=== PATIENT | female | born 1995 | race Caucasian/White ===

== ENCOUNTER → 2019-03-16 08:06 | Outpatient (CLI) | payer BC, MEDICAID, SELFPAY ==
[2017-10-09 11:21] VITALS: BMI 16.8
[2019-03-16] VITALS (9 sets, daily range): BP systolic 101–128; BP diastolic 58–89; PULSE 53–73; RESP 13–21; TEMP 36.5; O2SAT 96–100; BMI 26.9
--- NOTE | 2019-03-16 08:21 | CT_ITS ---
PROCEDURE: CT GUIDED PERCUTANEOUS KIDNEY BIOPSY. DATE: March 16, 2019. INDICATION: Female, 23 years old. History of a transplanted right kidney and decreased renal function. PHYSICIAN: Marty Haji M.D. MEDICATIONS: 2 mg of Versed and 50 mcg of fentanyl intravenously. Conscious sedation protocol was followed. The patient was monitored by the department nurse. Conscious sedation was started at 9:42 AM and terminated at 9:57 AM. ACCESS SITE: Right pelvic kidney. NEEDLE: 18-gauge core biopsy needle system. SPECIMEN: 4 18-gauge cores. EBL: None. COMPLICATIONS: None immediate. RADIATION DOSAGE (If Supplied By Facility): CTDIvol = ( 15 ) mGy, DLP = ( 466.41. ) mGycm The risks, benefits, and alternatives to the procedure and sedation were explained to the patient. The specific risk of hemorrhage requiring further treatment or intervention was detailed and accepted. Written informed consent was obtained. The patient was placed on the CT table in the supine position. Multiple axial images were obtained from the lung base through the caudal extent of the kidneys. An appropriate entry site was identified and a donnie made on the skin. The skin overlying the [ right] anterior flank was prepped and draped in sterile fashion. 1% lidocaine was administered subcutaneously for local anesthesia. Initially, a 22 gauge needle was advanced and CT images confirmed good needle position. The 22 gauge needle was then exchanged for an 17 gauge introducer needle which was advanced. Repeat CT images confirmed good needle trajectory and tip position. The introducer needle was then advanced into the periphery of the inferior renal pole, and CT images were again obtained to confirm exact tip location. The inner stylet of the introducer needle was then removed and an 18 gauge coaxial needle was advanced thru the introducer needle and biopsy performed. A total of [ 4] passes were performed and the specimen collected was sent to Pathology for further evaluation. The needle was withdrawn. Hemostasis was achieved with manual compression and a sterile dressing was applied. Repeat CT images of the biopsy area was performed which demonstrated no gross bleeding or hematoma. The patient tolerated the procedure well without immediate complications. The patient was transported to the [floor/recovery area] in stable condition. CT/Biopsy/Inj or Needle Placement IMPRESSION: Successful CT guided percutaneous kidney biopsy. Electronically Signed: Marty Haji, at 10:58 EDT , Service support ,
[2019-03-16 08:27] LABS: Hematocrit 34.2 % (37-47); Hemoglobin 11.4 g/dl (12.0-15.0); Mean Corp Hgb Conc 33.3 g/gl (32-36); Mean Corpuscular Hgb 34.2 pg (27.0-32.0); Mean Corpuscular Volume 102.7 fL (81-99); Mean Platelet Vol. 8.9 fl (6.2-12.0); Platelet Count 209 K/mm3 (150-450); RBC Distribution Width CV 14.1 % (11.6-14.6); Red Blood Count 3.33 M/mm3 (4.2-5.4); White Blood Count 6.2 K/mm3 (4.4-11.0)
[2019-03-16 08:29] LABS: Scan Indicated on CBC? Y/N NO
[2019-03-16 08:34] LABS: International Normalized Ratio 1.1; Prothrombin Time (Protime)PT. 14.1 SECONDS (11.7-14.9)
[2019-03-16 08:35] LABS: Partial Thromboplast Time 27.6 Seconds (24.1-36.2)
[2019-03-16] MEDS: Midazolam 2 MG/2 ML Syringe IV (09:42)
[2019-03-16] MEDS: fentaNYL 100 MCG/2 ML Ampul IV (09:43)
--- NOTE | 2019-03-16 09:45 | KI_PTH ---
PATIENT: ALANNA LYMAN LOC: CT U#:[id number] AGE/SX: 29/F ROOM: RE03/16/[address]: Dr. Ezekiel Becerril MD : 1995 BED: DIS: SPEC #: [id number] RECD: 03/16/19 10:12 STATUS: NELSON REAyaan #: [id number] CASA: 03/16/19 09:[address]: Ezekiel Becerril DEPT: SURGICAL PATHOLOGY RECD BY: Katherine Sauceda ENTERED: 03/16/19 10:37 SP TYPE: KIDNEY BX OTHR DR: Dr. Jonny Azul MD Tissues: Kidney, NOS Procedures: Electron Microscopy (ACH) Fluorescent Antibody (ACH) Kidney Biopsy (ACH) Fluorescent antibody (ACH) add'l Special Stain Group II HEADER OPERATION: Transplanted kidney biopsy PRE-OP DIAGNOSIS: Chronic kidney disease, renal transplant disorder TISSUE SUBMITTED: 18 gauge core x4 transplanted kidney - right pelvis MICROSCOPIC DIAGNOSIS Transplant kidney, right pelvis biopsies: Borderline cellular renal transplant changes including interstitial inflammation (i2) and rare tubulitis (t1). Mild interstitial fibrosis. Chronic transplant nephropathy including thickened vasculature and mild mesangial expansion. No evidence of antibody mediated rejection (C4d immunohistochemistry negative). See comment. COMMENT Correlate clinically with creatinine levels, donor-specific antibodies and renal function. Slides reviewed with Dr. Ferguson. The findings are best compatible with borderline cellular changes and a background of chronic changes. No evidence of antibody-mediated rejection (C4d immunohistochemical stain negative). MICROSCOPIC DESCRIPTION Light microscopy examined with H & E, PAS, Villalba silver and trichrome stains yields 17 glomeruli for evaluation. There are 8 globally sclerosed glomeruli; however, 7 of these are subcapsular and likely do not represent a disease process. The remaining open glomeruli show mild mesangial expansion and rare evidence of hypercellularity. There is no evidence of glomerular inflammation, crescent formation or segmental sclerosis. The interstitium shows variable mild to moderate lymphocytic infiltrate (i2) with occasional/focal plasma cells are rare eosinophils. There is mild evidence of interstitial fibrosis on deeper sections. There is patchy tubule atrophy in areas of interstitial inflammation. The tubules show focal evidence of lymphocytic infiltrate (t1). Exam of the vessels show thickened intimal layer with some asymmetry. There is no evidence of vasculitis. Special stain positive controls are reviewed and deemed adequate. Deeper levels examined with H & E stain. Medullary renal tissue is fairly unremarkable. C4d immunohistochemical stain is negative in the peritubule capillaries. There is rare stain in the glomeruli and in a single medium sized arteriole seen in the sample. Positive and negative immunohistochemical stain controls are reviewed and deemed adequate. There is focal capsular fibrous tissue present with a mild lymphoid aggregate underneath the capsule. IMMUNOFLUORESCENCE: Tissue frozen and submitted for immunofluorescence evaluation yields 5 glomeruli, of which 2 are globally sclerosed. There is background glomerular and cortex signal with IgG, albumin, kappa and lambda. IgM shows only focal nonspecific peripheral glomerular signal. IgA, C3, C1q and fibrin are negative. Positive and negative immunofluorescence controls are reviewed and deemed adequate. ELECTRON MICROSCOPY: Toluidine blue semithin sections yields 1 open glomerulus. Ultrastructure examination shows focal dilated capillary loops with minimal variable glomerular basement membrane thickening. There is mild patchy mesangial matrix expansion. There is no evidence of deposits or significant endothelial damage. The podocyte foot processes are essentially intact. The tubules show mild degenerative changes. GROSS DESCRIPTION The specimen is sent entirely to [facility] for diagnosis. Received in tube of poly-transport media are four stuart cores of renal tissue ranging in length from 0.7 cm up to 1.6 cm; each approximately 0.1 cm in width. The specimen is divided for electron microscopy, immunofluorescence and light microscopy.
== END ==
PROVIDERS: Family Provider Family Medicine; PCP Family Medicine; Referring Provider Internal Medicine Nephrology; Visit Provider Internal Medicine Nephrology
DX: N18.3 Chronic kidney disease, stage 3 (moderate) (principal); T86.10 Unspecified complication of kidney transplant; D89.9 Disorder involving the immune mechanism, unspecified; Z13.0 Encounter for screening for diseases of the blood and blood-forming organs and certain disorders involving the immune mechanism; N17.9 Acute kidney failure, unspecified
CPT/HCPCS: 50200; 36415; 77012; 85027; 85610; 85730; 88305; 88313; 88346; 88348; 88350; 99156; J7040

== ENCOUNTER → 2019-05-01 08:14 | Outpatient (CLI) | payer BC, MEDICAID, SELFPAY ==
[2019-03-16 08:52] VITALS: BMI 26.9
[2019-05-01] VITALS (9 sets, daily range): BP systolic 121–152; BP diastolic 71–96; PULSE 59–76; RESP 16–23; TEMP 36.7; O2SAT 96–100; BMI 27.3
--- NOTE | 2019-05-01 08:45 | CT_ITS ---
PROCEDURE: CT GUIDED PERCUTANEOUS KIDNEY BIOPSY. DATE: May 01, 2019. INDICATION: Female, 23 years old. Patient has a history of a right renal transplant and possible rejection. PHYSICIAN: Marty Haji M.D. MEDICATIONS: 2 mg of Versed and 50 mcg of fentanyl intravenously. Conscious sedation protocol was followed. Conscious sedation was started at 10:03 AM and terminated at 10:26 AM. The patient was independently monitored by the department nurse. ACCESS SITE: Lower pole of the transplanted right pelvic kidney. NEEDLE: 18-gauge core biopsy needle system SPECIMEN: 4 18-gauge cores EBL: None. COMPLICATIONS: None immediate. RADIATION DOSAGE (If Supplied By Facility): CTDIvol = ( 16.67 ) mGy, DLP = ( 398.64 ) mGycm The risks, benefits, and alternatives to the procedure and sedation were explained to the patient. The specific risk of hemorrhage requiring further treatment or intervention was detailed and accepted. Written informed consent was obtained. The patient was placed on the CT table in the supine position. Multiple axial images were obtained from the lung base through the caudal extent of the kidneys. An appropriate entry site was identified and a donnie made on the skin. The skin overlying the [right ]anterior flank was prepped and draped in sterile fashion. 1% lidocaine was administered subcutaneously for local anesthesia. A 17 gauge introducer needle which was advanced. Repeat CT images confirmed good needle trajectory and tip position. The introducer needle was then advanced into the periphery of the inferior renal pole, and CT images were again obtained to confirm exact tip location. The inner stylet of the introducer needle was then removed and an 18 gauge coaxial needle was advanced thru the introducer needle and biopsy performed. A total of [ 4] passes were performed and the specimen collected was sent to Pathology for further evaluation. The needle was withdrawn. Hemostasis was achieved with manual compression and a sterile dressing was applied. Repeat CT images of the biopsy area was performed which demonstrated no gross bleeding or hematoma. The patient tolerated the procedure well without immediate complications. The patient was transported to the [floor/recovery area] in stable condition. CT/Biopsy/Inj or Needle Placement IMPRESSION: Successful CT guided percutaneous kidney biopsy. Electronically Signed: Marty Haji, at 10:59 EDT , Service support ,
[2019-05-01 08:46] LABS: Hematocrit 33.5 % (37-47); Hemoglobin 11.4 g/dl (12.0-15.0); Mean Corpuscular Hgb 35.1 pg (27.0-32.0); Mean Corpuscular Volume 103.1 fL (81-99); Mean Platelet Vol. 8.7 fl (6.2-12.0); Platelet Count 221 K/mm3 (150-450); RBC Distribution Width CV 14.4 % (11.6-14.6); RBC Distribution Width SD 52.3 fl (35.1-43.9); Red Blood Count 3.25 M/mm3 (4.2-5.4); White Blood Count 9.9 K/mm3 (4.4-11.0)
[2019-05-01 08:49] LABS: Scan Indicated on CBC? Y/N NO
[2019-05-01 08:54] LABS: Prothrombin Time (Protime)PT. 13.2 SECONDS (11.7-14.9)
[2019-05-01 08:55] LABS: Partial Thromboplast Time 23.5 Seconds (24.1-36.2)
[2019-05-01] MEDS: Midazolam 2 MG/2 ML Syringe IV (10:07)
[2019-05-01] MEDS: fentaNYL 100 MCG/2 ML Ampul IV (10:09)
--- NOTE | 2019-05-01 10:30 | KI_PTH ---
PATIENT: ALANNA LYMAN LOC: CT U#:[id number] AGE/SX: 29/F ROOM: RE05/01/[address]: Dr. Ezekiel Becerril MD : 1995 BED: DIS: SPEC #: [id number] RECD: 05/01/19 10:34 STATUS: NELSON REAyaan #: [id number] CASA: 05/01/19 10:[address]: Ezekiel Becerril DEPT: SURGICAL PATHOLOGY RECD BY: Katherine Sauceda ENTERED: 05/01/19 15:35 SP TYPE: KIDNEY BX OTHR DR: Dr. Jonny Azul MD Tissues: Kidney, NOS Procedures: Electron Microscopy (ACH) Fluorescent Antibody (ACH) Sp St Grp II Kidney (ACH) Kidney Biopsy (ACH) Fluorescent antibody (ACH) add'l Immunohistochemical Stains HEADER OPERATION: CT-guided transplant kidney biopsy PRE-OP DIAGNOSIS: Renal transplant disorder TISSUE SUBMITTED: Kidney biopsy 18 gauge x4 MICROSCOPIC DIAGNOSIS Renal transplant biopsy demonstrating: Extensive acute tubular injury. Borderline changes of cellular rejection. No evidence of antibody-mediated resection, anti-C4d negative. MICROSCOPIC DESCRIPTION Sections are evaluated with H & E, PAS, Villalba and trichrome stains. 27 total glomeruli are present. 19 glomeruli are globally sclerotic; however, they are predominantly subcapsular in location. Preserved glomeruli demonstrate delicate capillary loops with no significant mesangial expansion, segmental lesions or active glomerulitis. There is minimal (~5%) interstitial fibrosis with an expected increase in the subcapsular region. The vast majority of the proximal tubules demonstrate necrosis and sloughing of the epithelial cells. There is a mild patchy mononuclear inflammatory infiltrate and rare foci of lymphocytic tubulitis are identified. Arterioles show no significant medial thickening. No arteritis is identified. IMMUNOFLUORESCENCE: There is no specific glomerular staining to indicate the deposition of immunoglobulins (IgG, IgA or IgM) or complement components (C3 or C1q). Glomerular fibrin deposition is not increased. IMMUNOHISTOCHEMISTRY: An immunohistochemical stain for anti-C4d is performed with adequate controls and demonstrates no staining of peritubular capillaries. ELECTRON MICROSCOPY: One glomerulus is evaluated. Mesangial areas are not significantly expanded and no discrete electron dense deposits are identified. Glomerular capillary loops demonstrate basement membranes of normal thickness with no discrete electron dense deposits. There is approximately 15-20% effacement of overlying epithelial cell foot processes. Tubular basement membranes are of normal thickness with no discrete electron dense deposits. There is significant necrosis of tubular epithelial cells. GROSS DESCRIPTION The specimen is sent entirely to [facility] for diagnosis. The specimen is received in transport medium and consists of four cores of stuart renal tissue that range in length from 1 to 1.5 cm. The cores are divided for histology, immunofluorescence and electron microscopy.
== END ==
PROVIDERS: Family Provider Family Medicine; PCP Family Medicine; Referring Provider Internal Medicine Nephrology; Visit Provider Internal Medicine Nephrology
DX: Z01.818 Encounter for other preprocedural examination (principal); T86.10 Unspecified complication of kidney transplant
CPT/HCPCS: 50200; 36415; 77012; 85027; 85610; 85730; 88305; 88313; 88342; 88346; 88348; 88350; 99156; J7040; A4216

== ENCOUNTER 2019-06-23 11:52 | Inpatient (IN) | payer BC, MEDICAID, SELFPAY ==
[2019-05-01 09:55] VITALS: BMI 27.3
[2019-06-23 11:53] VITALS: BP 121/78; PULSE 83; RESP 15; TEMP 36.6; O2SAT 100; BMI 25.4
--- NOTE | 2019-06-23 12:35 | ED.VISSUMM ---
- ER Visit Summary Date of Service: 06/23/19 Chief Complaint: I need to be transferred to History of Present Illness: The patient is a 23 F who comes in complaining she needs to be transferred to [place]. She states that she has a kidney transplant and her pension examiner said that it is failing. He checked her creatinine recently and it was 5.2. She continues with her immunosuppressive medications at home. Denies any fevers. Her only complaint is of mild stomach pains. Physical Examination: Vital signs reviewed. HEENT exam unremarkable. Heart is regular rate and rhythm without murmurs. Lungs are clear to auscultation. Abdomen is soft and nontender. Extremities reveal no edema. Skin exam normal. Neurologic exam normal. Test Results: Hemoglobin 9.5, BUN 79, creatinine 7.6 Emergency Department Course and Treatment: The patient's pension examiner, Dr. Becerril has been in contact with the transplant team at . They have done 2 biopsies the last time her creatinine raise like this. There is no evidence of rejection. The transplant team does not feel the patient needs to be transferred to . Her pension examiner would like her kept here for fluid hydration and to trend her creatinine. I spoke with the hospitalist and the patient will be admitted Treatment Plan: [] Disposition: Admit Impression: Acute renal failure, kidney transplant This note was generated with [employer] dictation software. It may contain incorrect words, spelling, and punctuation that were not noted in review of the chart prior to signing ED Disposition - Plan for ED Patient: Referrals: Jonny Azul [Primary Care Provider] -
[2019-06-23 12:58] LABS: Absolute Lymphocyte Count 2.35 X10^3/uL (0.83-4.51); Absolute Neutrophil Count 3.8 X10^3/uL (2.0-7.7); Basophil# 0.04 X10^3/uL; Basophil% 0.6 % (0-1); Eosinophil# 0.07 X10^3/uL; Hematocrit 27.7 % (37-47); Hemoglobin 9.5 g/dL (12.0-15.0); Lymphocyte # 2.35 X10^3/ul (4.0); Lymphocyte % 34.7 % (19-41); Mean Corp Hgb Conc 34.3 g/dL (32-36); Mean Corpuscular Hgb 34.2 pg (27.0-32.0); Mean Corpuscular Volume 99.6 fL (81-99); Mean Platelet Vol. 10.1 fl (6.2-12.0); Monocyte# 0.54 X10^3/uL; NRBC Flagged by Analyzer 0 % (0-5); Neutrophil # 3.76 X10^3/uL (2.7-7.7); Neutrophil % 55.4 % (47-70); Platelet Count 205 K/mm3 (150-450); Red Blood Count 2.78 M/mm3 (4.2-5.4); White Blood Count 6.8 K/mm3 (4.4-11.0)
[2019-06-23 13:13] LABS: Anion Gap 11 (5-15); BUN 79 mg/dL (7-18); BUN/Creat Ratio 10.4 RATIO (10-20); Calcium,Total 9.9 mg/dL (8.5-10.1); Chloride 108 mmol/L (98-107); EST Glomerular Filtration Rate 7 mL/min (>60); Est Glom Filt Rate - Afr Amer 9 mL/min (>60); Estimated Creatinine Clearance 8.84 ml/min; Glucose 91 mg/dL (74-106); Potassium 3.8 mmol/L (3.5-5.1); Sodium Level 137 mmol/L (136-145)
--- NOTE | 2019-06-23 15:11 | PCM.CONS.R ---
Problem List (1) NASIM (acute kidney injury) Status: Acute Consultation - Renal 06/23/19 PCP/ Referring MD: Requesting physician: Dr Owens Primary care physician: Jonny Azul Reason for Consultation:: NASIM - History of Present Illness History of Present Illness: The patient is a 23 year old F who was sent to the hospital by me due to acute renal failure. She is well-known to us from office. Has known history of living related kidney transplant in 2004 from her mother. 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 She has maintained relatively stable kidney function over the last few years. About 6 months ago, she started having increase in creatinine. Initial biopsy was consistent with acute cellular rejection. We referred her to [facility] kidney [facility] center. She was treated with IV steroids followed by high-dose oral steroids. She was somewhat erratic in following up. Missed several appointments due to transportation issues. Due to persistent creatinine elevation, she had another biopsy which showed somewhat better kidney. However she had pretty extensive sclerosis. She came into my office today and was found to have a creatinine of 7 hence she was referred to here. Says she has been sick over the last few days. Associated nausea, poor appetite. She recently had a progesterone implant for contraception. She is in the process of getting it removed. No urinary complaints. Medication list as below. Last tacrolimus level is on the higher side at 12.6. No cough, fever, UTI symptoms. - Allergies Allergies: Allergies iron Allergy (Verified 06/23/19 15:03) Low blood pressure/rash amoxicillin [From Augmentin] Adverse Reaction (Verified 06/23/19 15:03) vomiting/heart racing clavulanic acid [From Augmentin] Adverse Reaction (Verified 06/23/19 15:03) vomiting/heart racing STARFRUIT Adverse Reaction (Uncoded 05/01/19 09:55) KIDNEY TRANSPLANT - Current Medications Current Medications: Current Medications Sodium Chloride () 1,000 mls @ 150 mls/hr IV .Q6H40M CHRISTAL - Social History Smoking Status: Never smoker Review of Systems Constitutional: Reports: Anorexia, Fever. Denies: Chills, Weight Change HEENT: Denies: Head Aches, Sinus Congestion, Sinus Drainage Cardiovascular: Denies: Chest Pain, Palpitations Respiratory: Denies: Cough, Shortness of breath at rest, Sputum production Gastrointestinal: Denies: Abdominal Pain, Nausea, Vomiting Genitourinary: Denies: Dysuria Musculoskeletal: Denies: Joint Pain, Joint Tenderness Skin: Denies: Rash, Wounds Neurological: Denies: Numbness, Tingling, Focal weakness Psychiatric: Denies: Anxiety, Depression, Homicidal Ideations, Suicidal Ideations Hematologic/ Lymphatic: Denies: Easy Bruising, Easy Bleeding Patient Problems: Active and Suspected Problems NASIM (acute kidney injury) (Acute) - Physical Exam General: Alert, Oriented x3, Cooperative HEENT: Atraumatic, PERRLA, EOMI, Normocephalic Neck: Supple, No JVD, Negative Carotid Bruits Lungs: Clear to auscultation, Normal air movement Cardiovascular: Regular rate, No murmurs Abdomen: Bowel Sounds Present, Soft, Non Tender Extremities: No edema, Capillary Refill Less than 3 Seconds Skin: No rashes, No breakdown Musculoskeletal: No Tenderness to Palpation of Joints or Extremities Neurological: Cranial nerves II-XII grossly intact Psych/Mental Status: Normal Affect, Appropriate Vital Signs Temp Pulse Resp BP Pulse Ox 97.8 F 83 15 121/78 H 100 06/23/19 11:53 06/23/19 11:53 06/23/19 11:53 06/23/19 11:53 06/23/19 11:53 Oxygen Delivery Method Room Air Weight: 61.235 kg Body Mass Index (BMI) 25.4 Laboratory Tests Past 24 Hrs 06/23/19 06/23/19 12:45 12:45 WBC 6.8 RBC 2.78 L Hgb 9.5 L Hct 27.7 L MCV 99.6 H MCH 34.2 H MCHC 34.3 RDW Std Deviation 44.0 H RDW Coeff of Chava 12.0 Plt Count 205 MPV 10.1 Immature Gran % (Auto) 0.300 Neut % (Auto) 55.4 Lymph % (Auto) 34.7 Foster % (Auto) 8.0 Eos % (Auto) 1.0 Baso % (Auto) 0.6 Absolute Neuts (auto) 3.8 Absolute Lymphs (auto) 2.35 Absolute Nucleated RBC 0.00 Nucleated RBC % 0 Sodium 137 Potassium 3.8 Chloride 108 H Carbon Dioxide 18.0 L Anion Gap 11 BUN 79 H Creatinine 7.60 H* Estim Creat Clear Calc 8.84 Est GFR (MDRD) Af Amer 9 L Est GFR (MDRD) Non-Af 7 L BUN/Creatinine Ratio 10.4 Glucose 91 Calcium 9.9 Assessment/Plan All Active Problems NASIM (acute kidney injury) (Acute) Acute renal failure Kidney transplant with recent cellular rejection Acidosis She has been under the care of [facility] transplant [place] over the last 3 months. She had 2 kidney biopsies with last one being end of April. The second biopsy showed extensive sclerosis. There was no cellular rejection. She has almost 70% fibrosis. I discussed this case with transplant nephrology at the [facility]. They do not think antirejection treatment is warranted due to extensive fibrosis. Even last month, her creatinine was in the threes. Since she is having significant nausea and vomiting over the last few days, I suspect there might be a component of dehydration. Will admit to hospital today and give fluids overnight. If her creatinine does not improve significantly over the next 24 hours, she might have to start dialysis. In the past she has done peritoneal dialysis but apparently she had at least 2 episodes of peritonitis. I do not think peritoneal dialysis is feasible in the setting of prior peritonitis episodes. Will plan for hemodialysis depending on creatinine levels tomorrow Discussed with patient, mom, ER physician.
--- NOTE | 2019-06-23 15:12 | NURSING ---
MED SURG CARLOS ACUTE RENAL FAILURE, TRANSPLANT PATIENT
[2019-06-23 15:19] VITALS: BMI 25.5
--- NOTE | 2019-06-23 15:19 | HP.PCM_ITS ---
Problem List (1) History of kidney transplant Status: Chronic (2) Acute renal failure superimposed on stage 3 chronic kidney disease Status: Chronic History of Present Illness Date of Admission: 06/23/19 Chief Complaint: Patient came to ER as she thought her kidney is getting rejected. The patient is a 23 year old F with history of kidney transplant and [facility] in 2004 came to ED stating that she needs to be transferred [facility]. Her creatinine is slowly getting worse. It was 2.35 with estimated creatinine clearance 24 mL/min in October 2017. She further said since the beginning of about December 2018, her creatinine is getting worse. There is no change in her urine output as per patient. She still has 4-5 times moderate amount of urine output during daytime and 2-3 times at night. Denies any fever chills, lower urinary tract symptoms including burning micturition, increased frequency urgency recent change illness. Seen by parole or probation officer in ED and he talked to transplant nephrology and he was notified that 2 previous kidney biopsies was negative for rejection. She states she is compliant with her immunosuppressive regimen. Past Medical History Past Medical History (Chronic Problems): Chronic Problems History of kidney transplant (Chronic) Acute renal failure superimposed on stage 3 chronic kidney disease (Chronic) Allergies iron Allergy (Verified 06/23/19 15:03) Low blood pressure/rash amoxicillin [From Augmentin] Adverse Reaction (Verified 06/23/19 15:03) vomiting/heart racing clavulanic acid [From Augmentin] Adverse Reaction (Verified 06/23/19 15:03) vomiting/heart racing STARFRUIT Adverse Reaction (Uncoded 05/01/19 09:55) KIDNEY TRANSPLANT Home Medications: Ambulatory Orders Medication Instructions Recorded Folic Acid 1 mg PO DAILY@0800 03/16/19 Melatonin 5 mg PO QHS 03/16/19 Butalb/Acetaminophen/Caffeine 1 cap PO Q4H PRN 06/23/19 [Nmxtbs-Xmggafpe-Wkey 50-300-40] Calcitriol 0.5 mcg PO QHS 06/23/19 Cyanocobalamin [Vitamin B12] 1,000 mcg PO DAILY@0800 06/23/19 Mycophenolate Mofetil [Cellcept] 750 mg PO BID 06/23/19 Prednisone 5 mg PO DAILY 06/23/19 Sulfamethoxazole/Trimethoprim 1 tab PO QHS 06/23/19 [Sulfamethoxazole-Tmp Ss Tablet] Tacrolimus 5 mg PO BID 06/23/19 Valacyclovir HCl [Valacyclovir] 500 mg PO QHS 06/23/19 Smoking Status: Never smoker - *Family History Paternal History Items: No pertinent history VTE Information - Inpt Only VTE Present on Admission: No VTE Mechan Device Prophylaxis: None VTE Pharm Prophylaxis ordered?: No Patient Problems: Active and Suspected Problems NASIM (acute kidney injury) (Acute) - Physical Exam General: Alert, Oriented x3, Cooperative HEENT: Atraumatic, PERRLA, EOMI, Normocephalic Neck: Supple, No JVD, Negative Carotid Bruits Lungs: Clear to auscultation, Normal air movement, No rhonchi, No wheeze Cardiovascular: Regular rate, Regular Rhythm, Normal S1, Normal S2, No murmurs Abdomen: Bowel Sounds Present, Soft, Non Tender, Non-Distended, - - No tenderness around the transplant kidney in the right iliac region. Extremities: No edema, Capillary Refill Less than 3 Seconds Skin: No rashes, No breakdown Musculoskeletal: No Tenderness to Palpation of Joints or Extremities Neurological: Cranial nerves II-XII grossly intact Psych/Mental Status: Normal Affect, Appropriate Vital Signs Temp Pulse Resp BP Pulse Ox 97.8 F 83 15 121/78 H 100 06/23/19 11:53 06/23/19 11:53 06/23/19 11:53 06/23/19 11:53 06/23/19 11:53 Oxygen Delivery Method Room Air Weight: 135 lb Body Mass Index (BMI) 25.4 Laboratory Tests Past 24 Hrs 06/23/19 06/23/19 12:45 12:45 WBC 6.8 RBC 2.78 L Hgb 9.5 L Hct 27.7 L MCV 99.6 H MCH 34.2 H MCHC 34.3 RDW Std Deviation 44.0 H RDW Coeff of Chava 12.0 Plt Count 205 MPV 10.1 Immature Gran % (Auto) 0.300 Neut % (Auto) 55.4 Lymph % (Auto) 34.7 [place] % (Auto) 8.0 Eos % (Auto) 1.0 Baso % (Auto) 0.6 Absolute Neuts (auto) 3.8 Absolute Lymphs (auto) 2.35 Absolute Nucleated RBC 0.00 Nucleated RBC % 0 Sodium 137 Potassium 3.8 Chloride 108 H Carbon Dioxide 18.0 L Anion Gap 11 BUN 79 H Creatinine 7.60 H* Estim Creat Clear Calc 8.84 Est GFR (MDRD) Af Amer 9 L Est GFR (MDRD) Non-Af 7 L BUN/Creatinine Ratio 10.4 Glucose 91 Calcium 9.9 Assessment/Plan All Active Problems NASIM (acute kidney injury) (Acute) The patient is a 23 year old F with history of kidney transplant and [facility] in 2004 came to ED stating that she needs [facility] be [facility]. Her creatinine is slowly getting worse. It was 2.35 with estimated creatinine clearance 24 mL/min in October 2017. She further said since the beginning of about December 2018, her creatinine is getting worse. Currently, BUN/creatinine 79/7.6. Seen by parole or probation officer in ED and he talked to transplant nephrology and he was notified that 2 previous kidney biopsies was negative for rejection. She states she is compliant with her immunosuppressive regimen. 1. Acute kidney injury on CKD stage IV: Patient is being admitted on [facility] floor. Patient already seen by parole or probation officer. IV fluid normal saline 150 mL/h. Monitor intake and output. There is no plan for dialysis as of now. there is no change in her urine output as per patient. She still has 4-5 times moderate amount of urine output during daytime and 2-3 times at night. Denies any fever chills, lower urinary tract symptoms including burning micturition, increased frequency urgency recent change illness. Monitor electrolytes, kidney function and intake and output. Patient is on tacrolimus, mycophenolate and prednisone. Patient is also on Bactrim and valacyclovir. 2. Acute on chronic anemia mainly macrocytic probably from anemia of chronic disease: Patient H&H 9.5/27.7. It generally runs around 11.4/33 in March and January 2019. MCV 99.6, MCH is high. Check folic acid, B12 and reticulocyte index. Continue vitamin D and folic acid. DVT prophylaxis: Low risk: Early ambulation encouraged. Laboratory Results 06/23/19 12:45: WBC 6.8, RBC 2.78 L, Hgb 9.5 L, Hct 27.7 L, MCV 99.6 H, MCH 34.2 H, MCHC 34.3, RDW Std Deviation 44.0 H, RDW Coeff of Chava 12.0, Plt Count 205, MPV 10.1, Immature Gran % (Auto) 0.300, Neut % (Auto) 55.4, Lymph % (Auto) 34.7, [place] % (Auto) 8.0, Eos % (Auto) 1.0, Baso % (Auto) 0.6, Absolute Neuts (auto) 3.8, Absolute Lymphs (auto) 2.35, Absolute Nucleated RBC 0.00, Nucleated RBC % 0 06/23/19 12:45: Sodium 137, Potassium 3.8, Chloride 108 H, Carbon Dioxide 18.0 L , Anion Gap 11, BUN 79 H, Creatinine 7.60 H*, Estim Creat Clear Calc 8.84, Est GFR (MDRD) Af Amer 9 L, Est GFR (MDRD) Non-Af 7 L, BUN/Creatinine Ratio 10.4, Glucose 91, Calcium 9.9 Code Visit Inpatient E&M: 17938 Init Hosp L3
[2019-06-23] MEDS: 0.9% Normal Saline 1,000 ML 150 ML IV ×3 (15:37→23:54)
[2019-06-23 15:39] VITALS: RESP 18
--- NOTE | 2019-06-23 15:40 | NURSING ---
320 CARLOS NASIM ON CKD4 , S/P RENAL TRANSPLANT
[2019-06-23 17:00] VITALS: BMI 25.0
[2019-06-23 17:02] VITALS: BP 102/65; PULSE 64; RESP 16; TEMP 36.7; O2SAT 98
[2019-06-23 20:28] VITALS: BP 117/68; PULSE 64; RESP 18; TEMP 36.8; O2SAT 99
[2019-06-23] MEDS: Tacrolimus Anhydrous 1 MG Capsule 5 MG PO (22:35)
[2019-06-23] MEDS: Mycophenolate Mofetil 250 MG Capsule 750 MG PO (22:35)
[2019-06-23] MEDS: MELATONIN 10 MG TABLET 5 MG PO (22:36)
[2019-06-23] MEDS: Calcitriol 0.25 MCG Capsule 0.5 MCG PO (22:36)
[2019-06-24 02:18] VITALS: BP 104/61; PULSE 61; RESP 18; TEMP 36.9; O2SAT 98
[2019-06-24 06:06] LABS: Absolute Lymphocyte Count 2.32 X10^3/uL (0.83-4.51); Absolute Neutrophil Count 3.3 X10^3/uL (2.0-7.7); Basophil# 0.03 X10^3/uL; Basophil% 0.5 % (0-1); Eosinophils% 1.6 % (0-5); Hematocrit 24.9 % (37-47); Hemoglobin 8.5 g/dL (12.0-15.0); Lymphocyte # 2.32 X10^3/ul (4.0); Lymphocyte % 36.5 % (19-41); Mean Corp Hgb Conc 34.1 g/dL (32-36); Mean Corpuscular Hgb 35.3 pg (27.0-32.0); Mean Corpuscular Volume 103.3 fL (81-99); Mean Platelet Vol. 9.7 fl (6.2-12.0); Monocyte# 0.55 X10^3/uL; Monocyte% 8.6 % (0-10); NRBC Flagged by Analyzer 0 % (0-5); Neutrophil # 3.32 X10^3/uL (2.7-7.7); Neutrophil % 52.2 % (47-70); Platelet Count 179 K/mm3 (150-450); Red Blood Count 2.41 M/mm3 (4.2-5.4); Reticulocyte Count 1.46 % (0.5-1.5); White Blood Count 6.4 K/mm3 (4.4-11.0)
[2019-06-24] MEDS: 0.9% Normal Saline 1,000 ML 150 ML IV (06:28)
[2019-06-24 08:06] VITALS: BP 102/62; PULSE 57; RESP 16; TEMP 36.6; O2SAT 99
[2019-06-24 08:33] LABS: Anion Gap 12 (5-15); BUN 57 mg/dL (7-18); BUN/Creat Ratio 13.5 RATIO (10-20); Calcium,Total 8.3 mg/dL (8.5-10.1); Chloride 117 mmol/L (98-107); Creatinine, Serum 4.23 mg/dL (0.55-1.02); EST Glomerular Filtration Rate 14 mL/min (>60); Est Glom Filt Rate - Afr Amer 17 mL/min (>60); Estimated Creatinine Clearance 15.88 ml/min; Glucose 96 mg/dL (74-106); Magnesium 1.6 mg/dL (1.6-2.6); Phosphorus 3.3 mg/dL (2.5-4.9); Potassium 4.1 mmol/L (3.5-5.1); Sodium Level 147 mmol/L (136-145)
[2019-06-24 08:53] LABS: Vitamin B12 > 2000 pg/mL (211-911)
[2019-06-24] MEDS: Cyanocobalamin 500 MCG Tablet 1000 MCG PO (09:29)
[2019-06-24] MEDS: Folic Acid 1 MG Tablet PO (09:30)
[2019-06-24] MEDS: predniSONE 5 MG Tablet PO (09:30)
[2019-06-24] MEDS: Tacrolimus Anhydrous 1 MG Capsule 5 MG PO ×2 (09:30→22:29)
[2019-06-24] MEDS: Mycophenolate Mofetil 250 MG Capsule 750 MG PO ×2 (09:30→22:29)
[2019-06-24 10:10] LABS: Anion Gap 8 (5-15); BUN 49 mg/dL (7-18); BUN/Creat Ratio 13.8 RATIO (10-20); Calcium,Total 8.5 mg/dL (8.5-10.1); Chloride 116 mmol/L (98-107); Creatinine, Serum 3.56 mg/dL (0.55-1.02); EST Glomerular Filtration Rate 17 mL/min (>60); Est Glom Filt Rate - Afr Amer 21 mL/min (>60); Estimated Creatinine Clearance 18.86 ml/min; Glucose 95 mg/dL (74-106); Potassium 4.1 mmol/L (3.5-5.1); Sodium Level 143 mmol/L (136-145)
--- NOTE | 2019-06-24 11:04 | PCM.PN.HOSP ---
Patient Problems: Active and Suspected Problems NASIM (acute kidney injury) (Acute) Subjective: Patient was seen and examined. She feels better. She complains of slight lightheadedness. Denies any fever or chills or diarrhea. No acute events overnight. Vitals/I&O's: Vital Signs Temp Pulse Resp BP Pulse Ox 98 F 57 L 16 102/62 99 06/24/19 08:06 06/24/19 08:06 06/24/19 08:06 06/24/19 08:06 06/24/19 08:06 Oxygen Delivery Method Room Air Weight: 60.2 kg Body Mass Index (BMI) 25.0 Intake and Output for Last 24 Hours 06/22/19 06/23/19 06/24/19 23:59 23:59 23:59 Intake Total 406 / 406 2040 / 2040 Output Total 1400 / 1400 Balance 406 / 406 640 / 640 General: Alert, Oriented x3, Cooperative, No apparent distress HEENT: Atraumatic, PERRLA, EOMI, Normocephalic Oral: Moist Mucosa Neck: Supple Lungs: Clear to auscultation, Normal air movement Cardiovascular: Regular rate, Regular Rhythm, Normal S1, Normal S2, No murmurs Abdomen: Bowel Sounds Present, Soft, Non Tender, Non-Distended, No Hepato-splenomegaly Extremities: No edema Skin: No rashes, No breakdown Musculoskeletal: No Tenderness to Palpation of Joints or Extremities Lymphatic: No Cervical, Supraclavicular, or Inguinal Adenopathy Neurological: Cranial nerves II-XII grossly intact, Neuro grossly intact Psych/Mental Status: Normal Affect, Appropriate Laboratory Results 06/23/19 12:45: WBC 6.8, RBC 2.78 L, Hgb 9.5 L, Hct 27.7 L, MCV 99.6 H, MCH 34.2 H, MCHC 34.3, RDW Std Deviation 44.0 H, RDW Coeff of Chava 12.0, Plt Count 205, MPV 10.1, Immature Gran % (Auto) 0.300, Neut % (Auto) 55.4, Lymph % (Auto) 34.7, [place] % (Auto) 8.0, Eos % (Auto) 1.0, Baso % (Auto) 0.6, Absolute Neuts (auto) 3.8, Absolute Lymphs (auto) 2.35, Absolute Nucleated RBC 0.00, Nucleated RBC % 0 06/23/19 12:45: Sodium 137, Potassium 3.8, Chloride 108 H, Carbon Dioxide 18.0 L, Anion Gap 11, BUN 79 H, Creatinine 7.60 H*, Estim Creat Clear Calc 8.84, Est GFR (MDRD) Af Amer 9 L, Est GFR (MDRD) Non-Af 7 L, BUN/Creatinine Ratio 10.4, Glucose 91, Calcium 9.9 06/24/19 05:50: Sodium 147 H, Potassium 4.1, Chloride 117 H, Carbon Dioxide 18.0 L, Anion Gap 12, BUN 57 H, Creatinine 4.23 H, Estim Creat Clear Calc 15.88, Est GFR (MDRD) Af Amer 17 L, Est GFR (MDRD) Non-Af 14 L, BUN/Creatinine Ratio 13.5, Glucose 96, Calcium 8.3 L, Phosphorus 3.3, Magnesium 1.6, Folate 47.90 06/24/19 05:50: WBC 6.4, RBC 2.41 L, Hgb 8.5 L, Hct 24.9 L, MCV 103.3 H, MCH 35.3 H, MCHC 34.1, RDW Std Deviation 45.0 H, RDW Coeff of Chava 12.0, Plt Count 179, MPV 9.7, Immature Gran % (Auto) 0.600, Neut % (Auto) 52.2, Lymph % (Auto) 36.5, [place] % (Auto) 8.6, Eos % (Auto) 1.6, Baso % (Auto) 0.5, Absolute Neuts (auto) 3.3, Absolute Lymphs (auto) 2.32, Absolute Nucleated RBC 0.00, Nucleated RBC % 0, Retic Count 1.46, Immature Retic Fraction 7.30, Retic Hgb Equivalent 39.0 H 06/24/19 05:50: Vitamin B12 > 2000 H 06/24/19 09:30: Sodium 143, Potassium 4.1, Chloride 116 H, Carbon Dioxide 19.0 L, Anion Gap 8, BUN 49 H, Creatinine 3.56 H, Estim Creat Clear Calc 18.86, Est GFR (MDRD) Af Amer 21 L, Est GFR (MDRD) Non-Af 17 L, BUN/Creatinine Ratio 13.8, Glucose 95, Calcium 8.5 Current Medications Acetaminophen (Tylenol) 650 mg PO Q6H PRN PRN PRN Reason: Mild Pain (1-3)/Temp > 100.7 F Acetaminophen/Butalbital/Caffeine (Fioricet) 1 tablet PO Q4H PRN PRN Reason: MIGRAINE SYMPTOMS Calcitriol (Rocaltrol) 0.5 mcg PO QHS [facility] Last Admin: 06/23/19 22:36 Dose: 0.5 mcg Documented by: Cyanocobalamin (Vitamin B12) 1,000 mcg PO DAILY@0800 [facility] Last Admin: 06/24/19 09:29 Dose: 1,000 mcg Documented by: Folic Acid (Folic Acid) 1 mg PO DAILY@0800 [facility] Last Admin: 06/24/19 09:30 Dose: 1 mg Documented by: Dextrose () 1,000 mls @ 100 mls/hr IV .Q10H [facility] Last Admin: 06/24/19 09:36 Dose: 100 mls/hr Documented by: Melatonin (Melatonin) 5 mg PO QHS [facility] Last Admin: 06/23/19 22:36 Dose: 5 mg Documented by: Mycophenolate Mofetil (Cellcept) 750 mg PO BID [facility] Last Admin: 06/24/19 09:30 Dose: 750 mg Documented by: Oxycodone HCl (Oxyir) 5 mg PO Q4H PRN PRN PRN Reason: Moderate Pain (4-6/10) Prednisone () 5 mg PO DAILYCM [facility] Last Admin: 06/24/19 09:30 Dose: 5 mg Documented by: Senna/Docusate Sodium (Senokot-S, Violetta-Colace) 2 tablet PO BID PRN PRN PRN Reason: Constipation Sodium Chloride () 10 - 40 ml IV UD PRN PRN Reason: SALINE FLUSH Tacrolimus (Prograf) 5 mg PO BID [facility] Last Admin: 06/24/19 09:30 Dose: 5 mg Documented by: Valacyclovir HCl (Valtrex) 500 mg PO QHS [facility] Medical Necessity - Tobacco Use Smoking Status: Never smoker Assessment/Plan All Active Problems NASIM (acute kidney injury) (Acute) 23-year-old with past medical history of glomerulonephritis status post living donor kidney transplant who comes in with abnormal blood work indicated of creatinine more than 7. Patient has had recent kidney biopsies which showed extensive sclerosis, >70% fibrosis. She recently has had significant nausea and vomiting. 1. NASIM on CKD stage IV, prerenal, dehydration secondary to nausea and vomiting, improved with IV fluids, creatinine down from 7.60-3.56 Will continue on IV fluids, monitor urine output, Discussed with nephrology, no indication for transfer to [facility] now, no indication for dialysis as creatinine is improving with IV fluids. Labs in am, continue on immunosuppresants 2. Acute on chronic anemia of CKD, reticulocyte count elevated, B12 is more than 2000, folate is 47.9 , will check iron stores 3. DVT PPx - early ambulation Code Visit Inpatient E&M: 65628 Subs Hosp L2
[2019-06-24 11:35] LABS: Ferritin 309 ng/mL (8-252); Iron 94 ug/dL (50-170); Iron Binding Capacity,Total 197 ug/dL (250-450); PERCENT IRON SATURATION 47.7 % (15.0-55.0)
--- NOTE | 2019-06-24 12:21 | PCM.PN.REN ---
Patient Problems: Active and Suspected Problems NASIM (acute kidney injury) (Acute) Subjective: no new complaints - Physical Exam General: Alert, Oriented x3, Cooperative HEENT: Atraumatic, PERRLA, EOMI, Normocephalic Neck: Supple, No JVD, Negative Carotid Bruits Lungs: Clear to auscultation, Normal air movement Cardiovascular: Regular rate, No murmurs Abdomen: Bowel Sounds Present, Soft, Non Tender Extremities: No edema, Capillary Refill Less than 3 Seconds Skin: No rashes, No breakdown Musculoskeletal: No Tenderness to Palpation of Joints or Extremities Neurological: Cranial nerves II-XII grossly intact Psych/Mental Status: Normal Affect, Appropriate Vital Signs Temp Pulse Resp BP Pulse Ox 98 F 57 L 16 102/62 99 06/24/19 08:06 06/24/19 08:06 06/24/19 08:06 06/24/19 08:06 06/24/19 08:06 Oxygen Delivery Method Room Air Weight: 60.2 kg Body Mass Index (BMI) 25.0 Intake and Output for Last 24 Hours 06/22/19 06/23/19 06/24/19 23:59 23:59 23:59 Intake Total 406 / 406 2040 / 2040 Output Total 1400 / 1400 Balance 406 / 406 640 / 640 Laboratory Tests Past 24 Hrs 06/23/19 06/23/19 06/24/19 12:45 12:45 05:50 WBC 6.8 RBC 2.78 L Hgb 9.5 L Hct 27.7 L MCV 99.6 H MCH 34.2 H MCHC 34.3 RDW Std Deviation 44.0 H RDW Coeff of Chava 12.0 Plt Count 205 MPV 10.1 Immature Gran % (Auto) 0.300 Neut % (Auto) 55.4 Lymph % (Auto) 34.7 [place] % (Auto) 8.0 Eos % (Auto) 1.0 Baso % (Auto) 0.6 Absolute Neuts (auto) 3.8 Absolute Lymphs (auto) 2.35 Absolute Nucleated RBC 0.00 Nucleated RBC % 0 Retic Count Immature Retic Fraction Retic Hgb Equivalent Sodium 137 147 H Potassium 3.8 4.1 Chloride 108 H 117 H Carbon Dioxide 18.0 L 18.0 L Anion Gap 11 12 BUN 79 H 57 H Creatinine 7.60 H* 4.23 H Estim Creat Clear Calc 8.84 15.88 Est GFR (MDRD) Af Amer 9 L 17 L Est GFR (MDRD) Non-Af 7 L 14 L BUN/Creatinine Ratio 10.4 13.5 Glucose 91 96 Calcium 9.9 8.3 L Phosphorus 3.3 Magnesium 1.6 Iron TIBC Iron Saturation Ferritin Vitamin B12 Folate 47.90 06/24/19 06/24/19 06/24/19 05:50 05:50 09:30 WBC 6.4 RBC 2.41 L Hgb 8.5 L Hct 24.9 L MCV 103.3 H MCH 35.3 H MCHC 34.1 RDW Std Deviation 45.0 H RDW Coeff of Chava 12.0 Plt Count 179 MPV 9.7 Immature Gran % (Auto) 0.600 Neut % (Auto) 52.2 Lymph % (Auto) 36.5 [place] % (Auto) 8.6 Eos % (Auto) 1.6 Baso % (Auto) 0.5 Absolute Neuts (auto) 3.3 Absolute Lymphs (auto) 2.32 Absolute Nucleated RBC 0.00 Nucleated RBC % 0 Retic Count 1.46 Immature Retic Fraction 7.30 Retic Hgb Equivalent 39.0 H Sodium 143 Potassium 4.1 Chloride 116 H Carbon Dioxide 19.0 L Anion Gap 8 BUN 49 H Creatinine 3.56 H Estim Creat Clear Calc 18.86 Est GFR (MDRD) Af Amer 21 L Est GFR (MDRD) Non-Af 17 L BUN/Creatinine Ratio 13.8 Glucose 95 Calcium 8.5 Phosphorus Magnesium Iron TIBC Iron Saturation Ferritin Vitamin B12 > 2000 H Folate 06/24/19 09:30 WBC RBC Hgb Hct MCV MCH MCHC RDW Std Deviation RDW Coeff of Chava Plt Count MPV Immature Gran % (Auto) Neut % (Auto) Lymph % (Auto) [place] % (Auto) Eos % (Auto) Baso % (Auto) Absolute Neuts (auto) Absolute Lymphs (auto) Absolute Nucleated RBC Nucleated RBC % Retic Count Immature Retic Fraction Retic Hgb Equivalent Sodium Potassium Chloride Carbon Dioxide Anion Gap BUN Creatinine Estim Creat Clear Calc Est GFR (MDRD) Af Amer Est GFR (MDRD) Non-Af BUN/Creatinine Ratio Glucose Calcium Phosphorus Magnesium Iron 94 TIBC 197 L Iron Saturation 47.7 Ferritin 309 H Vitamin B12 Folate Medical Necessity - Tobacco Use Smoking Status: Never smoker Assessment/Plan All Active Problems NASIM (acute kidney injury) (Acute) Acute renal failure Kidney transplant with recent cellular rejection Acidosis NASIM is significantly better. likely she has recovery from dehydration no acute indications for [employer] continue fluids for one more day Anemia. TSATS ok and B12 folate ok she was taken off azathioprine in the past when this happened. cant do it yet because she had a cellular rejection recently may need SAVI
--- NOTE | 2019-06-24 14:12 | CHAPLAIN ---
Type of Pastoral Visit _x__ Initial Visit ___ Follow-up Visit ___ On-call Visit ___ General Patient Visit ___ Spiritual Assessment ___ Family Conference ___ Bereavement ___ Rapid Response ___ Code Blue ___ Other (describe below) Pastoral Care Referral From _x__ Patient ___ Family ___ Nurse ___ Physician ___ Ladle Patcher ___ Flight Instructor ___ Other (describe below) Sacrament/Intervention _x__ Active listening ___ Anointing ___ Orthodox ___ Bereavement ___ Communion ___ Brianna exploration ___ _x__ Life review _x__ Prayer ___ Reconciliation ___ Sacrament of Sick _x__ Supportive presence ___ Wedding ___ Other (describe below) Pastoral Comments
[2019-06-24 14:15] VITALS: BP 117/73; PULSE 74; RESP 18; TEMP 36.6; O2SAT 100
--- NOTE | 2019-06-24 15:30 | CASEMGMT ---
Addendum entered by Jagruti Booker 06/25/19 11:23: 06/24/19: 1630. SW, Surinder, notified that pt would like to talk w/SW for AD. Original Note: RN CM AUDIT MGR CM to room to meet with patient for initial transition planning/care coordination assessment. RN TATIANA introduced self and role at [facility]. Pt voices understanding and consents to assessment at this time. Pt resting in bed in no distress at this time. Pt is A/O at this time and answers all questions appropriately. Care providers, pharmacy, and demographics verified/updated at this time. PCP: Dr Jonny Azul Specialists: Dr Becerril--nephrology Preferred [facility]acy: [facility] Insurance: [employer] Prescription Benefit: Yes Living Will/HPOA: Pt does not currently have LW/HCPOA but is interested in talking with SW to complete HCPOA paperwork. Pt made aware this RN CM will inform SW and she will try to meet with pt before she is discharged. Pt given Critical Care Nurse Practitioner Rac Card with info and phone number to call for an appt after discharge if SW unable to meet with her while she is here at the hospital. LNOK: Mother. 2 brothers Living Arrangements: Lives with her mother, step-father, and 2 brothers. States she helps out with chores in the home when she is feeling well. States when she is ill, that her mother is supportive and assists her as needed. Transportation: Pt states she does not drive. Her mother provides transportation and she denies transportation concerns. DME: Denies having/using and DME and denies needs. HHC/SNF: No history of either. No needs identified. Pt wishes to return home and states has no concerns with going home at time of discharge. CM to follow for any discharge planning/needs. Pt voices no further concerns/needs at this time. Advised pt to ask for CM if any further questions/concerns/needs arise. Voices understanding. PLAN: Home w/family support and discharge plans in place. Dean EPPERSON RN, CM
[2019-06-24] MEDS: MELATONIN 10 MG TABLET 5 MG PO (22:28)
[2019-06-24] MEDS: Calcitriol 0.25 MCG Capsule 0.5 MCG PO (22:29)
[2019-06-24 22:40] VITALS: BP 96/55; PULSE 71; RESP 18; TEMP 36.6; O2SAT 99
[2019-06-25 04:20] VITALS: BP 103/60; PULSE 66; RESP 16; TEMP 36.8; O2SAT 99
[2019-06-25 06:17] LABS: Anion Gap 10 (5-15); BUN 36 mg/dL (7-18); BUN/Creat Ratio 14.5 RATIO (10-20); Calcium,Total 8.4 mg/dL (8.5-10.1); Chloride 112 mmol/L (98-107); Creatinine, Serum 2.49 mg/dL (0.55-1.02); EST Glomerular Filtration Rate 26 mL/min (>60); Est Glom Filt Rate - Afr Amer 31 mL/min (>60); Estimated Creatinine Clearance 26.97 ml/min; Glucose 118 mg/dL (74-106); Potassium 3.6 mmol/L (3.5-5.1); Sodium Level 140 mmol/L (136-145)
[2019-06-25 06:27] LABS: Absolute Lymphocyte Count 2.04 X10^3/uL (0.83-4.51); Absolute Neutrophil Count 4.1 X10^3/uL (2.0-7.7); Basophil# 0.02 X10^3/uL; Basophil% 0.3 % (0-1); Eosinophils% 1.5 % (0-5); Hematocrit 23.7 % (37-47); Hemoglobin 8.2 g/dL (12.0-15.0); Lymphocyte # 2.04 X10^3/ul (4.0); Lymphocyte % 29.9 % (19-41); Mean Corp Hgb Conc 34.6 g/dL (32-36); Mean Corpuscular Hgb 34.7 pg (27.0-32.0); Mean Corpuscular Volume 100.4 fL (81-99); Mean Platelet Vol. 10.1 fl (6.2-12.0); Monocyte# 0.58 X10^3/uL; Monocyte% 8.5 % (0-10); NRBC Flagged by Analyzer 0 % (0-5); Neutrophil # 4.05 X10^3/uL (2.7-7.7); Neutrophil % 59.2 % (47-70); Platelet Count 173 K/mm3 (150-450); RBC Distribution Width CV 12.1 % (11.6-14.6); RBC Distribution Width SD 44.1 fl (35.1-43.9); Red Blood Count 2.36 M/mm3 (4.2-5.4); White Blood Count 6.8 K/mm3 (4.4-11.0)
[2019-06-25 06:48] VITALS: O2SAT 98
[2019-06-25 08:52] VITALS: BP 94/55; PULSE 69; RESP 14; TEMP 36.6; O2SAT 100
[2019-06-25] MEDS: Folic Acid 1 MG Tablet PO (08:56)
[2019-06-25] MEDS: Mycophenolate Mofetil 250 MG Capsule 750 MG PO (08:56)
[2019-06-25] MEDS: Tacrolimus Anhydrous 1 MG Capsule 5 MG PO (08:56)
[2019-06-25] MEDS: Cyanocobalamin 500 MCG Tablet 1000 MCG PO (08:56)
[2019-06-25] MEDS: predniSONE 5 MG Tablet PO (08:56)
--- NOTE | 2019-06-25 09:12 | PN_ITS ---
Patient Problems: Active and Suspected Problems NASIM (acute kidney injury) (Acute) Subjective: Patient was seen and examined. She feels well. Denies any complains. ROS is negative Objective: Physical exam: General: Alert, Oriented x3, Cooperative, No apparent distress HEENT: Atraumatic, PERRLA, EOMI, Normocephalic Oral: Moist Mucosa Neck: Supple Lungs: Clear to auscultation, Normal air movement Cardiovascular: Regular rate, Regular Rhythm, Normal S1, Normal S2, No murmurs Abdomen: Bowel Sounds Present, Soft, Non Tender, Non-Distended, No Hepato- splenomegaly Extremities: No edema Skin: No rashes, No breakdown Musculoskeletal: No Tenderness to Palpation of Joints or Extremities Lymphatic: No Cervical, Supraclavicular, or Inguinal Adenopathy Neurological: Cranial nerves II-XII grossly intact, Neuro grossly intact Psych/Mental Status: Normal Affect, Appropriate Vitals/I&O's: Vital Signs Temp Pulse Resp BP Pulse Ox 98 F 69 14 94/55 L 100 06/25/19 08:52 06/25/19 08:52 06/25/19 08:52 06/25/19 08:52 06/25/19 08:52 Oxygen Delivery Method Room Air Weight: 60.2 kg Body Mass Index (BMI) 25.0 Intake and Output for Last 24 Hours 06/23/19 06/24/19 06/25/19 23:59 23:59 23:59 Intake Total 406 / 406 4637 / 4637 623 / 623 Output Total 2900 / 2900 550 / 550 Balance 406 / 406 1737 / 1737 73 / 73 Laboratory Results 06/24/19 09:30: Sodium 143, Potassium 4.1, Chloride 116 H, Carbon Dioxide 19.0 L , Anion Gap 8, BUN 49 H, Creatinine 3.56 H, Estim Creat Clear Calc 18.86, Est GFR (MDRD) Af Amer 21 L, Est GFR (MDRD) Non-Af 17 L, BUN/Creatinine Ratio 13.8, Glucose 95, Calcium 8.5 06/24/19 09:30: Iron 94, TIBC 197 L, Iron Saturation 47.7, Ferritin 309 H 06/25/19 05:34: WBC 6.8, RBC 2.36 L, Hgb 8.2 L, Hct 23.7 L, MCV 100.4 H, MCH 34.7 H, MCHC 34.6, RDW Std Deviation 44.1 H, RDW Coeff of Chava 12.1, Plt Count 173, MPV 10.1, Immature Gran % (Auto) 0.600, Neut % (Auto) 59.2, Lymph % (Auto) 29.9, Putnam % (Auto) 8.5, Eos % (Auto) 1.5, Baso % (Auto) 0.3, Absolute Neuts (auto) 4.1, Absolute Lymphs (auto) 2.04, Absolute Nucleated RBC 0.00, Nucleated RBC % 0 06/25/19 05:34: Sodium 140, Potassium 3.6, Chloride 112 H, Carbon Dioxide 18.0 L , Anion Gap 10, BUN 36 H, Creatinine 2.49 H, Estim Creat Clear Calc 26.97, Est GFR (MDRD) Af Amer 31 L, Est GFR (MDRD) Non-Af 26 L, BUN/Creatinine Ratio 14.5, Glucose 118 H, Calcium 8.4 L Current Medications Acetaminophen (Tylenol) 650 mg PO Q6H PRN PRN PRN Reason: Mild Pain (1-3)/Temp > 100.7 F Acetaminophen/Butalbital/Caffeine (Fioricet) 1 tablet PO Q4H PRN PRN Reason: MIGRAINE SYMPTOMS Calcitriol (Rocaltrol) 0.5 mcg PO QHS [facility] Last Admin: 06/24/19 22:29 Dose: 0.5 mcg Documented by: Cyanocobalamin (Vitamin B12) 1,000 mcg PO DAILY@0800 [facility] Last Admin: 06/25/19 08:56 Dose: 1,000 mcg Documented by: Folic Acid (Folic Acid) 1 mg PO DAILY@0800 [facility] Last Admin: 06/25/19 08:56 Dose: 1 mg Documented by: Dextrose () 1,000 mls @ 75 mls/hr IV .[id number] [facility] Last Admin: 06/25/19 08:58 Dose: Not Given Documented by: Melatonin (Melatonin) 5 mg PO QHS [facility] Last Admin: 06/24/19 22:28 Dose: 5 mg Documented by: Mycophenolate Mofetil (Cellcept) 750 mg PO BID [facility] Last Admin: 06/25/19 08:56 Dose: 750 mg Documented by: Oxycodone HCl (Oxyir) 5 mg PO Q4H PRN PRN PRN Reason: Moderate Pain (4-6/10) Prednisone () 5 mg PO DAILYCM [facility] Last Admin: 06/25/19 08:56 Dose: 5 mg Documented by: Senna/Docusate Sodium (Senokot-S, Violetta-Colace) 2 tablet PO BID PRN PRN PRN Reason: Constipation Sodium Chloride () 10 - 40 ml IV UD PRN PRN Reason: SALINE FLUSH Tacrolimus (Prograf) 5 mg PO BID [facility] Last Admin: 06/25/19 08:56 Dose: 5 mg Documented by: Valacyclovir HCl (Valtrex) 500 mg PO QHS [facility] Last Admin: 06/24/19 22:39 Dose: 500 mg Documented by: Medical Necessity - Tobacco Use Smoking Status: Never smoker Assessment/Plan All Active Problems NASIM (acute kidney injury) (Acute) 23-year-old with past medical history of glomerulonephritis status post living donor kidney transplant who comes in with abnormal blood work indicated of creatinine more than 7. Patient has had recent kidney biopsies which showed extensive sclerosis, >70% fibrosis. She recently has had significant nausea and vomiting. 1. NASIM on CKD stage IV, prerenal, dehydration secondary to nausea and vomiting, improving with IV fluids, Creatinine is 2.49, on IVF, will continue same, nephrology ff, labs in am. 2. Hypomagnesemia, will replace, recheck in the outpatient. 3. Acute on chronic anemia of CKD, stable Hb 4. DVT PPx - early ambulation Code Visit Inpatient E&M: 23978 Subs Hosp L2
[2019-06-25 09:28] LABS: Magnesium 1.3 mg/dL (1.6-2.6)
--- NOTE | 2019-06-25 10:42 | PCM.DC ---
- Discharge Diagnoses Current Active Problems: Current Active and Chronic Problems NASIM (acute kidney injury) (Acute) History of kidney transplant (Chronic) Acute renal failure superimposed on stage 3 chronic kidney disease (Chronic) Reason(s) for Visit for Discharge Instructions: Abnormal blood work You will use the following diet at home:: Renal (restricted protein/sodium) Your food should be the consistency of: Regular Your liquids should be the consistency of: Regular/Thin Discharge Activity: Return to Normal Activity Additional Instructions: Continue to take your medications as prescribed. Continue to keep yourself hydrated. Follow-up with your primary care doctor and consulting senior practice director as scheduled. You will need repeat kidney function test as well as magnesium level at discharge. Allergies/Adverse Reactions: Allergies iron Allergy (Verified 06/23/19 15:03) Low blood pressure/rash amoxicillin [From Augmentin] Adverse Reaction (Verified 06/23/19 15:03) vomiting/heart racing clavulanic acid [From Augmentin] Adverse Reaction (Verified 06/23/19 15:03) vomiting/heart racing STARFRUIT Adverse Reaction (Uncoded 05/01/19 09:55) KIDNEY TRANSPLANT Medications to take at Discharge Folic Acid 1 mg PO DAILY@0800 03/16/19 Melatonin 5 mg PO QHS 03/16/19 Butalb/Acetaminophen/Caffeine [Xlsuwb-Oefuptrv-Lrff 50-300-40] 1 cap PO Q4H PRN 06/23/19 Calcitriol 0.5 mcg PO QHS 06/23/19 Cyanocobalamin [Vitamin B12] 1,000 mcg PO DAILY@0800 06/23/19 Mycophenolate Mofetil [Cellcept] 750 mg PO BID 06/23/19 Prednisone 5 mg PO DAILY 06/23/19 Sulfamethoxazole/Trimethoprim [Sulfamethoxazole-Tmp Ss Tablet] 1 tab PO QHS 06/23/19 Tacrolimus 5 mg PO BID 06/23/19 Valacyclovir HCl [Valacyclovir] 500 mg PO QHS 06/23/19 Acetaminophen [Tylenol Tablet] 650 mg PO Q6H PRN PRN tablet 06/25/19 Primary Care Physician: Jonny Azul [Primary Care Provider] - Please follow up with your Primary Care Physician in: within 1-2 weeks Test Results: Test results from this visit will be discussed in further detail at your follow-up appointment, if applicable. Please Follow Up With: Ezekiel Becerril MD When: as scheduled Proposed Discharge Date: 06/25/19
--- NOTE | 2019-06-25 10:47 | DS.PCM_ITS ---
Discharge Date and Diagnosis Date of Admission: 06/23/19 Date of Discharge: 06/25/19 - Primary Discharge Diagnosis Active and Suspected Problems NASIM (acute kidney injury) (Acute) Hypomagnesemia - Secondary Discharge Diagnosis Chronic Problems History of kidney transplant (Chronic) Acute renal failure superimposed on stage 3 chronic kidney disease (Chronic) Hospital Course and Treatment Nephrology Operations: None Procedures: None Summary of Care Provided: 23-year-old with past medical history of glomerulonephritis status post living donor kidney transplant who comes in with abnormal blood work of creatinine more than 7. Patient has had recent kidney biopsies which showed extensive sclerosis, >70% fibrosis in the [facility]. She recently has had significant nausea and vomiting. Her management was as follows: 1. NASIM on CKD stage IV, prerenal, secondary to dehydration secondary to nausea and vomiting. This improved with IV fluids. Her admitting creatinine was 7.60. She was discharged with creatinine of 2.49. Nephrology was consulted. Patient will follow-up in the outpatient with them. 2. Hypomagnesemia/Hypernatremia, resolved. 3. Acute on chronic anemia of CKD, stable Hb Subjective: Patient was seen and examined. She denied any new complaints. No nausea or vomiting or diarrhea. No fevers. She feels much improved. - Physical Exam General: Alert, Oriented x3, Cooperative, No apparent distress HEENT: Atraumatic, PERRLA, EOMI, Normocephalic Oral: Moist Mucosa Neck: Supple Lungs: Clear to auscultation, Normal air movement Cardiovascular: Regular rate, Regular Rhythm, Normal S1, Normal S2, No murmurs Abdomen: Bowel Sounds Present, Soft, Non Tender, Non-Distended, No Hepato- splenomegaly Extremities: No edema Skin: No rashes, No breakdown Musculoskeletal: No Tenderness to Palpation of Joints or Extremities Lymphatic: No Cervical, Supraclavicular, or Inguinal Adenopathy Neurological: Cranial nerves II-XII grossly intact, Neuro grossly intact Psych/Mental Status: Normal Affect, Appropriate Vital Signs Temp Pulse Resp BP Pulse Ox 98 F 69 14 94/55 L 100 06/25/19 08:52 06/25/19 08:52 06/25/19 08:52 06/25/19 08:52 06/25/19 08:52 Oxygen Delivery Method Room Air Weight: 60.2 kg Body Mass Index (BMI) 25.0 Intake and Output for Last 24 Hours 06/23/19 06/24/19 06/25/19 23:59 23:59 23:59 Intake Total 406 / 406 4637 / 4637 623 / 623 Output Total 2900 / 2900 550 / 550 Balance 406 / 406 1737 / 1737 73 / 73 Laboratory Tests Past 24 Hrs 06/24/19 06/25/19 06/25/19 09:30 05:34 05:34 WBC 6.8 RBC 2.36 L Hgb 8.2 L Hct 23.7 L MCV 100.4 H MCH 34.7 H MCHC 34.6 RDW Std Deviation 44.1 H RDW Coeff of Chava 12.1 Plt Count 173 MPV 10.1 Immature Gran % (Auto) 0.600 Neut % (Auto) 59.2 Lymph % (Auto) 29.9 Garrett % (Auto) 8.5 Eos % (Auto) 1.5 Baso % (Auto) 0.3 Absolute Neuts (auto) 4.1 Absolute Lymphs (auto) 2.04 Absolute Nucleated RBC 0.00 Nucleated RBC % 0 Sodium 140 Potassium 3.6 Chloride 112 H Carbon Dioxide 18.0 L Anion Gap 10 BUN 36 H Creatinine 2.49 H Estim Creat Clear Calc 26.97 Est GFR (MDRD) Af Amer 31 L Est GFR (MDRD) Non-Af 26 L BUN/Creatinine Ratio 14.5 Glucose 118 H Calcium 8.4 L Magnesium Iron 94 TIBC 197 L Iron Saturation 47.7 Ferritin 309 H 06/25/19 05:34 WBC RBC Hgb Hct MCV MCH MCHC RDW Std Deviation RDW Coeff of Chava Plt Count MPV Immature Gran % (Auto) Neut % (Auto) Lymph % (Auto) Garrett % (Auto) Eos % (Auto) Baso % (Auto) Absolute Neuts (auto) Absolute Lymphs (auto) Absolute Nucleated RBC Nucleated RBC % Sodium Potassium Chloride Carbon Dioxide Anion Gap BUN Creatinine Estim Creat Clear Calc Est GFR (MDRD) Af Amer Est GFR (MDRD) Non-Af BUN/Creatinine Ratio Glucose Calcium Magnesium 1.3 L Iron TIBC Iron Saturation Ferritin Discharge Diet: Renal Diet Discharge Activity: Return to Normal Activity Home Medications: Medications to take at Discharge Folic Acid 1 mg PO DAILY@0800 03/16/19 Melatonin 5 mg PO QHS 03/16/19 Butalb/Acetaminophen/Caffeine [Mcakro-Jvfjrchk-Xykz 50-300-40] 1 cap PO Q4H PRN 06/23/19 Calcitriol 0.5 mcg PO QHS 06/23/19 Cyanocobalamin [Vitamin B12] 1,000 mcg PO DAILY@0800 06/23/19 Mycophenolate Mofetil [Cellcept] 750 mg PO BID 06/23/19 Prednisone 5 mg PO DAILY 06/23/19 Sulfamethoxazole/Trimethoprim [Sulfamethoxazole-Tmp Ss Tablet] 1 tab PO QHS 06/23/19 Tacrolimus 5 mg PO BID 06/23/19 Valacyclovir HCl [Valacyclovir] 500 mg PO QHS 06/23/19 Acetaminophen [Tylenol Tablet] 650 mg PO Q6H PRN PRN tab 06/25/19 Primary Care Physician: Jonny Azul [Primary Care Provider] - Please follow up with your Primary Care Physician in: within 1-2 weeks Please Follow Up With: Ezekiel Becerril MD When: as scheduled Disposition: Home Minutes spent on discharge:: 40 Patient Condition:: Stable Medical Necessity - Tobacco Use Smoking Status: Never smoker Tobacco Use: Non-smoker Meaningful Use Info Meaningful Use Diagnoses (Choose all that apply): None applicable Code Visit Inpatient E&M: 88991 Disch Hosp
--- NOTE | 2019-06-25 10:53 | PN.RENAL_ITS ---
Patient Problems: Active and Suspected Problems NASIM (acute kidney injury) (Acute) Subjective: no new complaints - Physical Exam General: Alert, Oriented x3, Cooperative HEENT: Atraumatic, PERRLA, EOMI, Normocephalic Neck: Supple, No JVD, Negative Carotid Bruits Lungs: Clear to auscultation, Normal air movement Cardiovascular: Regular rate, No murmurs Abdomen: Bowel Sounds Present, Soft, Non Tender Extremities: No edema, Capillary Refill Less than 3 Seconds Skin: No rashes, No breakdown Musculoskeletal: No Tenderness to Palpation of Joints or Extremities Neurological: Cranial nerves II-XII grossly intact Psych/Mental Status: Normal Affect, Appropriate Vital Signs Temp Pulse Resp BP Pulse Ox 98 F 69 14 94/55 L 100 06/25/19 08:52 06/25/19 08:52 06/25/19 08:52 06/25/19 08:52 06/25/19 08:52 Oxygen Delivery Method Room Air Weight: 60.2 kg Body Mass Index (BMI) 25.0 Intake and Output for Last 24 Hours 06/23/19 06/24/19 06/25/19 23:59 23:59 23:59 Intake Total 406 / 406 4637 / 4637 623 / 623 Output Total 2900 / 2900 550 / 550 Balance 406 / 406 1737 / 1737 73 / 73 Laboratory Tests Past 24 Hrs 06/24/19 06/25/19 06/25/19 09:30 05:34 05:34 WBC 6.8 RBC 2.36 L Hgb 8.2 L Hct 23.7 L MCV 100.4 H MCH 34.7 H MCHC 34.6 RDW Std Deviation 44.1 H RDW Coeff of Chava 12.1 Plt Count 173 MPV 10.1 Immature Gran % (Auto) 0.600 Neut % (Auto) 59.2 Lymph % (Auto) 29.9 [place]ward % (Auto) 8.5 Eos % (Auto) 1.5 Baso % (Auto) 0.3 Absolute Neuts (auto) 4.1 Absolute Lymphs (auto) 2.04 Absolute Nucleated RBC 0.00 Nucleated RBC % 0 Sodium 140 Potassium 3.6 Chloride 112 H Carbon Dioxide 18.0 L Anion Gap 10 BUN 36 H Creatinine 2.49 H Estim Creat Clear Calc 26.97 Est GFR (MDRD) Af Amer 31 L Est GFR (MDRD) Non-Af 26 L BUN/Creatinine Ratio 14.5 Glucose 118 H Calcium 8.4 L Magnesium Iron 94 TIBC 197 L Iron Saturation 47.7 Ferritin 309 H 06/25/19 05:34 WBC RBC Hgb Hct MCV MCH MCHC RDW Std Deviation RDW Coeff of Chvaa Plt Count MPV Immature Gran % (Auto) Neut % (Auto) Lymph % (Auto) Woodward % (Auto) Eos % (Auto) Baso % (Auto) Absolute Neuts (auto) Absolute Lymphs (auto) Absolute Nucleated RBC Nucleated RBC % Sodium Potassium Chloride Carbon Dioxide Anion Gap BUN Creatinine Estim Creat Clear Calc Est GFR (MDRD) Af Amer Est GFR (MDRD) Non-Af BUN/Creatinine Ratio Glucose Calcium Magnesium 1.3 L Iron TIBC Iron Saturation Ferritin Medical Necessity - Tobacco Use Smoking Status: Never smoker Tobacco Use: Non-smoker Assessment/Plan All Active Problems NASIM (acute kidney injury) (Acute) Acute renal failure Kidney transplant with recent cellular rejection Acidosis NASIM is significantly better. likely she has recovery from dehydration no acute indications for [employer] Anemia. TSATS ok and B12 folate ok she was taken off azathioprine in the past when this happened. cant do it yet because she had a cellular rejection recently may need SAVI. will repeat CBC as outpatient and arrange for SAVI if needed vandana Alfonso Hypomagnesemia. repletion ordered.
[2019-06-25 13:52] VITALS: BP 112/67; PULSE 73; RESP 16; TEMP 36.8; O2SAT 99
== END 2019-06-25 14:00 | disposition home or self-care (01) | DRG 683 ==
LOC: ED 12:05 → MS3 15:39
PROVIDERS: Admitting Provider Internal Medicine; Emergency Provider Emergency Medicine; Family Provider Family Medicine; PCP Family Medicine; Visit Provider Internal Medicine
DX: N17.9 Acute kidney failure, unspecified (principal); Z94.0 Kidney transplant status; E87.0 Hyperosmolality and hypernatremia; N18.4 Chronic kidney disease, stage 4 (severe); D63.1 Anemia in chronic kidney disease; E86.0 Dehydration; N26.9 Renal sclerosis, unspecified; E83.42 Hypomagnesemia
CPT/HCPCS: 36415; 80048; 82607; 82728; 82746; 83540; 83550; 83735; 84100; 85025; 85045; 99285; J7030; A4216

== ENCOUNTER → 2023-12-17 | Outpatient (CLI) | payer BC, MEDICAID, SELFPAY ==
--- NOTE | 2023-12-17 13:25 | MRI_ITS ---
STUDY: MRI LUMBAR SPINE WITHOUT CONTRAST REASON FOR EXAM: Female, 27 years old. NKI or trauma, low back pain x3yrs, pain is sharp and piercing TECHNIQUE: Standardized fat and water weighted pulse sequences were obtained in the sagittal and axial planes. COMPARISON: X-ray the lumbar spine dated July 31, 2023 FINDINGS: Normal lumbar lordosis. There is no substantial scoliosis. Normal conus medullaris that terminates at the T12-L1 level. Transitional anatomy is present with 6 nonrib-bearing vertebral bodies. For purposes of this exam the most caudal vertebral body will be considered L5. T11-T12: Normal endplates. Moderate central canal stenosis with a broad-based disc herniation and midline disc protrusion causing compression anterior aspect of the cord and moderate central canal stenosis. Small Schmorl''s nodes on both sides of the disc space. Normal bilateral facet joints. Normal bilateral intervertebral neural foramina. T12-L1: Normal endplates. Mild to moderate asymmetric disc space narrowing with a small left paracentral superior disc extrusion contributing to mild central canal stenosis. Normal bilateral facet joints. Normal bilateral intervertebral neural foramina. L1-2: Normal endplates. Mild disc desiccation. Normal disc height and morphology. Normal bilateral facet joints. Normal central canal and bilateral lateral recesses. Normal bilateral intervertebral neural foramina. L2-3: Normal endplates. Mild disc desiccation and disc space narrowing without bulging or herniation of the disc. Normal bilateral facet joints. Normal central canal and bilateral lateral recesses. Normal bilateral intervertebral neural foramina. L3-4: Small anterior Schmorl''s node. Normal disc height, hydration and morphology. Normal bilateral facet joints. Normal central canal and bilateral lateral recesses. Normal bilateral intervertebral neural foramina. L4-5: Normal endplates. Normal disc height, hydration and morphology. Normal bilateral facet joints. Normal central canal and bilateral lateral recesses. Normal bilateral intervertebral neural foramina. L5-S1: Normal endplates. Normal disc height, hydration and morphology. Normal bilateral facet joints. Normal central canal and bilateral lateral recesses. Normal bilateral intervertebral neural foramina. Normal visualized sacral ala. Normal visualized paraspinous soft tissue structures. MRI/Spine Lumbar (Routine) IMPRESSION: 1. Multilevel degenerative changes, as described above. 2. Mild to moderate central canal stenosis with compression anterior aspect of the cord at T11-T12 and T12-L1 Electronically Signed: Guilherme Webster MD at 14:58 EST ,
== END | disposition home or self-care (01) ==
LOC: MRI 12:40
PROVIDERS: PCP Nurse Practitioner Family; Referring Provider Orthopaedic Surgery; Visit Provider Orthopaedic Surgery
DX: Q76.49 Other congenital malformations of spine, not associated with scoliosis (principal)
CPT/HCPCS: 72148

== ENCOUNTER 2025-11-30 08:58 | Outpatient (CLI) | payer MEDICARE, MEDICAID, SELFPAY ==
--- NOTE | 2025-11-30 09:00 | PET_ITS ---
PROCEDURE: PET/CT TUMOR BASE -THIGH SUBS 11/30/2025 REASON FOR EXAM: 29 y/o F with LYMPHOMA TECHNIQUE: Procedure Code: [id number] Modality: PT Procedure: PET/CT TUMOR BASE -THIGH SUBS Following the intravenous administration of radionucleotide, image acquisition on a dedicated PET/CT unit was performed at one hour post injection. A preliminary CT study encompassing the Skull base, neck, chest, abdomen, pelvis, and proximal thighs was performed for purposes of attenuation correction and anatomic localization. The proximal thighs were also included. The patient's blood glucose level was 90 mg/dL (allowable range: 50-180 mg/dL). RADIOPHARMACEUTICAL: 12.808 mCi 18F-FDG (Fluorodeoxyglucose F18) IV was injected into he patient. RADIATION DOSE SUMMARY: Effective Dose: Approximately 7 mSv for a standard whole-body PET scan Organ Doses: Varies by organ, with higher doses typically to the bladder, liver, and brain COMPARISON: COMPARISON FROM CT, PET OR OTHER PERTINENT EXAMS: None provided.. FINDINGS: Physiologic uptake: There may be expected metabolic uptake within the brain, tongue and floor of the mouth and larynx/vocal cords, heart, [place] (many normal individuals have hilar uptake in less than 3 nodes with mildly avid hilar nodes less than 2.7 SUV), liver and spleen, system, and GI tract and symmetric muscle uptake. FDG AVID AND NON-AVID LESIONS. Reported avid SUV values (g/mL*) are maximum SUV. NECK: There are no significant neck abnormalities. CHEST: Chest wall- Symmetric diffuse increased metabolic activity seen within the bilateral breast parenchyma. Axilla- There are no significant axillary abnormalities. Lung parenchyma- There are no significant lung parenchyma abnormalities. Mediastinum- There are no significant hilar or mediastinal adenopathy. Pleura- There are no significant pleural abnormalities. ABDOMEN: Right lower quadrant kidney transplant noted. Stomach- No significant abnormalities. Liver- no focal process identified. Spleen- No significant abnormalities. Pancrease- No significant abnormalities. Bowel- Normal bowel activity. Spine- No significant abnormalities. PELVIS: Bowel- Normal physiologic bowel activity is identified. Masses- There are no pelvic masses. Bones- Increased uptake is seen in the C5 vertebral body and to a lesser extent multiple other vertebral bodies in the medial right iliac bone, concerning for possible osseous involvement. With the use of bone window settings, there are no osteolytic or osteoblastic lesions. There are no FDG avid lesions within the visualized portion of the axial skeleton. PET/PET/CT Tumor Base -Thigh Subs IMPRESSION: FDG avid- 1. Increased uptake is seen in the C5 vertebral body and to a lesser extent mul tiple other vertebral bodies and medial right iliac bone, concerning for possible osseous involvement of the patient's lympho ma. 2. Symmetric diffuse increased metabolic activity seen within the bilateral rossy ast parenchyma. Other: Right lower quadrant kidney transplant Please note the low-dose CT scan was performed to facilitate PET image reconstr uction and anatomic localization and does not replace a diagnostic CT. Any diagnostic CT requested and performed at the time of the PET will be reported separately. Reading Location: [place] [id number]
== END 2025-11-30 23:59 | disposition home or self-care (01) ==
PROVIDERS: PCP Nurse Practitioner Family; Referring Provider Internal Medicine Hematology & Oncology; Visit Provider Internal Medicine Hematology & Oncology
DX: C83.33 Diffuse large B-cell lymphoma, intra-abdominal lymph nodes (principal); D47.Z1 Post-transplant lymphoproliferative disorder (PTLD); D84.9 Immunodeficiency, unspecified; Z94.0 Kidney transplant status; Z79.60 Long term (current) use of unspecified immunomodulators and immunosuppressants; Z87.891 Personal history of nicotine dependence
CPT/HCPCS: 78815; A9552